=== PATIENT | female | born 1995 | race Two or more races ===

== ENCOUNTER 2016-07-17 10:05 | Emergency (ER) | payer SELFPAY ==
[~2016-07-17] VITALS: Ht 144.8 cm; Wt 53.5 kg
[~2016-07-17 10:05] MED LIST: HYDR-2666 PO; PROAIR HFA8.5 GM INH; TRAM50TA PO
[2016-07-17 10:09] VITALS: BP 114/76
[2016-07-17] MEDS ORDERED: IBUP-1060 PO (16:15)
== END 2016-07-17 11:15 | disposition left against medical advice (07) ==
LOC: ER 10:05
DX: N93.9 Abnormal uterine and vaginal bleeding, unspecified (principal); R42 Dizziness and giddiness; R11.0 Nausea; Z53.21 Procedure and treatment not carried out due to patient leaving prior to being seen by health care provider

== ENCOUNTER 2016-07-17 11:46 | Emergency (ER) | payer SELFPAY ==
[~2016-07-17] VITALS: Ht 144.8 cm; Wt 53.5 kg
[2016-07-17 13:32] LABS: BASO % 0 % (0-3); EOS % 1 % (0-3); HEMATOCRIT 37.7 % (36.0-47.0); HEMOGLOBIN 12.3 g/dL (12.0-15.5); LYMPH # 2.6 x10^3/uL (1.0-4.8); LYMPH % 20 % (24-48); MEAN CORPUSCULAR HEMOGLOBIN 29 pg (25-35); MEAN CORPUSCULAR HGB CONC 33 g/dL (31-37); MEAN CORPUSCULAR VOLUME 89 fL (79-100); MONO % 5 % (0-9); NEUT % 74 % (31-73); PLATELET COUNT 255 x10^3/uL (140-400); RED BLOOD COUNT 4.24 x10^6/uL (3.50-5.40); RED CELL DISTRIBUTION WIDTH 14.4 % (11.5-14.5); WHITE BLOOD COUNT 13.3 x10^3/uL (4.0-11.0)
[2016-07-17] MEDS ORDERED: LORAZEPAM 1 MG TABLET. PO ONE (13:45)
[2016-07-17] MEDS ORDERED: ACETAMINOPHEN 500 MG TABLET PO ONE (14:30)
[2016-07-17 14:48] LABS: BILIRUBIN,URINE NEGATIVE (NEG); GLUCOSE,URINE NEGATIVE (NEG); NITRITE,URINE NEGATIVE (NEG); PROTEIN,URINE NEGATIVE (NEG-TRACE); UROBILINOGEN,URINE 0.2 mg/dL (0.2 mg/dL)
[2016-07-17 15:02] LABS: BACTERIA,URINE 0 /HPF (0-FEW); RBC,URINE >40 /HPF (0-2); WBC,URINE OCC /HPF (0-4)
[2016-07-17 15:15] VITALS: BP 102/58
[2016-07-17] MEDS ORDERED: AZITHROMYCIN 250 MG TABLET PO ONE (16:00)
[2016-07-17] MEDS ORDERED: CEFTRIAXONE IM 250 MG VIAL. IM ONE (16:00)
[2016-07-17] MEDS ORDERED: ONDANSETRON ODT 4 MG TAB.RAPDIS PO ONE (16:00)
[2016-07-17] MEDS ORDERED: KETOROLAC TROMETHAMINE 60 MG/2 ML SYRINGE. IM ONE (16:15)
[2016-07-17] MEDS ORDERED: IBUP-1060 PO (16:15)
--- NOTE | 2016-07-17 16:16 | PHYS DOC ---
Past Medical History Past Medical History: Anxiety, Bipolar, Kidney Stone Additional Past Medical Histor: PULMONARY EMBOLISH, SI, ADHD, PTSD,OCD Past Surgical History: Other Additional Past Surgical Histo: KIDNEY STENT Alcohol Use: None Drug Use: Marijuana Adult General Chief Complaint Chief Complaint: VAGINAL PROBLEM HPI HPI 21-year-old female who states she's had significant lower abdominal cramping with vaginal bleeding for the last 3 days. She states her last menstrual period was over a month ago and she was concerned she could be . She took 2 at home tests that were negative but states she still would like to be tested. She rates her pain a 6 out of 10 all localized to the lower abdominal area. She states she has mild nausea but no vomiting. She states her menstrual cycles are usually regular. Review of Systems Review of Systems Constitutional: Denies fever or chills [] Eyes: Denies change in visual acuity, redness, or eye pain [] HENT: Denies nasal congestion or sore throat [] Respiratory: Denies cough or shortness of breath [] Cardiovascular: No additional information not addressed in HPI [] GI: Has abdominal pain, has nausea, denies vomiting, denies bloody stools or diarrhea [] : Denies dysuria or hematuria [] Musculoskeletal: Denies back pain or joint pain [] Integument: Denies rash or skin lesions [] Neurologic: Denies headache, focal weakness or sensory changes [] Endocrine: Denies polyuria or polydipsia [] Current Medications Current Medications Current Medications Medications (Trade) Dose Ordered Sig/[facility] Start Time Stop Time Status Last Admin Dose Admin Acetaminophen (Tylenol) 1,000 mg 1X ONCE 07/17/16 14:30 07/17/16 14:36 DC 07/17/16 14:54 1,000 MG Azithromycin (Zithromax) 1,000 mg 1X ONCE 07/17/16 16:00 07/17/16 16:01 DC 07/17/16 16:00 1,000 MG Ceftriaxone Sodium (Rocephin Im) 250 mg 1X ONCE 07/17/16 16:00 07/17/16 16:01 DC 07/17/16 16:00 250 MG Ketorolac Tromethamine (Toradol Im) 60 mg 1X ONCE 07/17/16 16:15 07/17/16 16:25 DC Lorazepam (Ativan) 1 mg 1X ONCE 07/17/16 13:45 07/17/16 13:46 DC 07/17/16 13:45 1 MG Ondansetron HCl (Zofran Odt) 4 mg 1X ONCE 07/17/16 16:00 07/17/16 16:01 DC 07/17/16 16:00 4 MG Allergies Allergies Allergies Coded Allergies Type Severity Reaction Last Updated Verified aspirin Allergy Intermediate 06/03/16 Yes ibuprofen Allergy Intermediate hives swelling 12/30/15 Yes latex Allergy Intermediate 06/03/16 Yes mold Allergy Intermediate 06/03/16 Yes Physical Exam Physical Exam Constitutional: Well developed, well nourished, no acute distress, non-toxic appearance. [] HENT: Normocephalic, atraumatic, bilateral external ears normal, oropharynx moist, no oral exudates, nose normal. [] Eyes: PERRLA, EOMI, conjunctiva normal, no discharge. [] Neck: Normal range of motion, no tenderness, supple, no stridor. [] Cardiovascular:Heart rate regular rhythm, no murmur [] Lungs & Thorax: Bilateral breath sounds clear to auscultation [] Abdomen: Bowel sounds normal, soft, lower abdominal tenderness, no masses, no pulsatile masses. [] Skin: Warm, dry, no erythema, no rash. [] Back: No tenderness, no CVA tenderness. [] Extremities: No tenderness, no cyanosis, no clubbing, ROM intact, no edema. [] Neurologic: Alert and oriented X 3, normal motor function, normal sensory function, no focal deficits noted. [] Psychologic: Affect normal, judgement normal, mood normal. [] Current Patient Data Vital Signs Vital Signs Date Time Temp Pulse Resp B/P Pulse Ox O2 Delivery O2 Flow Rate FiO2 07/17/16 15:15 58 102/58 99 Room Air 07/17/16 13:20 18 07/17/16 11:59 98.2 98.2 Lab Values Laboratory Tests Test 07/17/16 13:10 07/17/16 13:40 07/17/16 14:30 White Blood Count 13.3x10^3/uL (4.0-11.0) H Red Blood Count 4.24x10^6/uL (3.50-5.40) Hemoglobin 12.3g/dL (12.0-15.5) Hematocrit 37.7% (36.0-47.0) Mean Corpuscular Volume 89fL (79-100) Mean Corpuscular Hemoglobin 29pg (25-35) Mean Corpuscular Hemoglobin Concent 33g/dL (31-37) Red Cell Distribution Width 14.4% (11.5-14.5) Platelet Count 255x10^3/uL (140-400) Neutrophils (%) (Auto) 74% (31-73) H Lymphocytes (%) (Auto) 20% (24-48) L Monocytes (%) (Auto) 5% (0-9) Eosinophils (%) (Auto) 1% (0-3) Basophils (%) (Auto) 0% (0-3) Neutrophils # (Auto) 9.8x10^3uL (1.8-7.7) H Lymphocytes # (Auto) 2.6x10^3/uL (1.0-4.8) Monocytes # (Auto) 0.7x10^3/uL (0.0-1.1) Eosinophils # (Auto) 0.1x10^3/uL (0.0-0.7) Basophils # (Auto) 0.0x10^3/uL (0.0-0.2) Maternal Serum HCG Beta Subunit < 1mIU/mL (0-6) POC Urine HCG, Qualitative Hcg negative (Negative) Urine Collection Type Unknown Urine Color Yellow Urine Clarity Clear Urine pH 7.0 Urine Specific [place] 1.010 Urine Protein Negativemg/dL (NEG-TRACE) Urine Glucose (UA) Negativemg/dL (NEG) Urine Ketones (Stick) Tracemg/dL (NEG) Urine Blood Large (NEG) Urine Nitrite Negative (NEG) Urine Bilirubin Negative (NEG) Urine Urobilinogen Dipstick 0.2mg/dL (0.2 mg/dL) Urine Leukocyte Esterase Trace (NEG) Urine RBC >40/HPF (0-2) Urine WBC Occ/HPF (0-4) Urine Bacteria 0/HPF (0-FEW) Urine Hyaline Casts Few/HPF Laboratory Tests 07/17/16 13:10 EKG EKG [] Radiology/Procedures Radiology/Procedures [] Course & Med Decision Making Course & Med Decision Making Pertinent Labs and Imaging studies reviewed. (See chart for details) This 21-year-old female is having lower abdominal cramping and vaginal bleeding is likely having dysfunctional uterine bleeding. Her serum quantitative value is negative for any value. Her urine was also negative for . Her urinalysis did not demonstrate any signs of infection. Her CBC did not reveal any anemia. Patient initially was very anxious and given a dose of Ativan. She stated she was also concern for sexual transmitted illness and was treated with IM Rocephin and a gram of Zithromax with Zofran as well. Patient is allergic to NSAIDs so is unable to really treat her pain adequately. She was given a gram of Tylenol for her pain. I counseled her that she is to continue tylenol at home. I also counseled her that she is to follow-up with a radial router operator if her bleeding should continue and to return to the ER immediately for those any worsening pain, shortness of breath, dizziness or lightheadedness. After her IM Rocephin injection she states she started to have some problems using her left leg and that this happened last time she was given a shot as well approximately 3 or 4 months ago. He is to the patient multiple times that she is to follow closely with her primary care doctor or radial router operator and she states she has no insurance and has no ability to do this. I provided her resources for follow-up. [place] Disclaimer Dragon Disclaimer This electronic medical record was generated, in whole or in part, using a voice recognition dictation system. Departure Departure Impression: Primary Impression: Dysfunctional uterine bleeding Disposition: 01 HOME, SELF-CARE Admitting Physician: Other Condition: STABLE Referrals: NO PCP (PCP) KONRAD PLASCENCIA MD Patient Instructions: Uterine Bleeding, Dysfunctional, [id number] Additional Instructions: Please follow up with the radial router operator in the next 2-3 days for your vaginal bleeding and pain. Take motrin as needed for your symptoms. Return to the ER if you develop any worsening of your symptoms. Scripts Ibuprofen 800 Mg Rtmgpk572 Mg PO PRN Q6HRS PRN INFLAMMATION #20 TAB Prov:RAYMUNDO WALTERS DO 07/17/16 RAYMUNDO WALTERS DO Jul 17, 2016 16:16
--- NOTE | 2016-07-19 14:14 | VNOTE ---
CALL BACK NOTE CALL BACK Microbiology 07/17/16 Urine Culture - Preliminary, Resulted 07/17/16 Urine Culture Result 1 (BERYL) - Preliminary, Resulted Received pathology report on patient today that shows that she tested positive for chlamydia. Review of patient's chart from her visit here 2 days ago shows that she did receive a gram of azithromycin in the emergency department. Attempted contact at [phone] indicated that phone was out of service. Registered mail letter will be sent patient. ESTEFANI TAYLOR Jul 19, 2016 14:14
== END 2016-07-17 16:40 | disposition home or self-care (01) ==
LOC: ER 11:46
DX: N93.8 Other specified abnormal uterine and vaginal bleeding (principal); R10.30 Lower abdominal pain, unspecified; F12.10 Cannabis abuse, uncomplicated; F42.9 Obsessive-compulsive disorder, unspecified; F41.9 Anxiety disorder, unspecified; F90.9 Attention-deficit hyperactivity disorder, unspecified type; F43.10 Post-traumatic stress disorder, unspecified; F31.9 Bipolar disorder, unspecified; Z87.442 Personal history of urinary calculi; Z88.6 Allergy status to analgesic agent; Z91.048 Other nonmedicinal substance allergy status; Z88.8 Allergy status to other drugs, medicaments and biological substances; Z91.040 Latex allergy status
CPT/HCPCS: 36415; 81001; 81025; 84702; 85027; 86900; 86901; 87086; 87491; 87591; 96372; 99284; J0696; Q0144; Q0162